=== PATIENT | female | born 1995 | race Caucasian/White ===

== ENCOUNTER 2018-03-30 00:45 | Emergency (ER) | payer SELFPAY ==
[~2018-03-30] VITALS: Ht 172.7 cm; Wt 63.0 kg
[2018-03-30 00:56] VITALS: BP 118/75
== END 2018-03-30 01:42 | disposition home or self-care (01) ==
LOC: ER 00:47
DX: S13.4XXA Sprain of ligaments of cervical spine, initial encounter (principal); S40.021A Contusion of right upper arm, initial encounter; Z90.89 Acquired absence of other organs; V49.59XA Passenger injured in collision with other motor vehicles in traffic accident, initial encounter; Y93.89 Activity, other specified; Y92.413 State road as the place of occurrence of the external cause; Y99.8 Other external cause status
CPT/HCPCS: 99282; A4606; Z7610